=== PATIENT | male | born 1980 | race Caucasian/White ===

== ENCOUNTER 2016-09-08 10:14 | Outpatient (RCR) | payer OTHER ==
[~2016-09-08 10:14] MED LIST: TRAM50TA2 PO
== END 2016-12-07 | disposition home or self-care (01) ==
LOC: LAB 10:14
PROVIDERS: ATTEND Nurse Practitioner
DX: N46.9 Male infertility, unspecified (principal)
CPT/HCPCS: 89320

== ENCOUNTER → 2018-01-09 | Outpatient (CLI) | payer OTHER ==
--- NOTE | 2018-01-09 17:44 | Diagnostic Imaging Report ---
INDICATION: Left knee pain. COMPARISON: None. EXAMINATION: Three views of the left knee were obtained. FINDINGS: No fracture or dislocation. Articular surfaces are normal. There is no foreign body. No joint effusion. IMPRESSION: Negative left knee. Dictated by: Dictated on workstation # [id number]
== END ==
LOC: RAD 17:22
PROVIDERS: ATTEND Family Medicine
DX: M76.892 Other specified enthesopathies of left lower limb, excluding foot (principal)
CPT/HCPCS: 73562; 73721

== ENCOUNTER → 2018-01-15 | Outpatient (CLI) | payer OTHER ==
--- NOTE | 2018-01-16 14:38 | RADIOLOGY REPORT ---
NAME: ROSARIO MCNAMARA [facility] REC#: [id number] PT STATUS: REG CLI : 1980 PHYSICIAN: ARBEN LAZARO APRN ADMIT DATE: 01/15/18/RAD CORRECTED Signed Date of Exam:01/15/18 MRI LT LOWER EXT JOINT W/O PROCEDURE: MRI left joint lower extremity without contrast. TECHNIQUE: Multiplanar, multisequence non contrast-enhanced MRI of the left lower extremity was accomplished. INDICATION: Fall 5 weeks ago, injury to the left knee. COMPARISON: Radiographs from 01/09/2018. FINDINGS: No acute fracture or dislocation is seen in the left knee. Alignment appears normal. There is a small left knee joint effusion. The articular cartilage in the patellofemoral compartment appears intact. The articular cartilage in the medial and lateral compartments demonstrates no large defects. There is linear signal at the posterior horn of the medial meniscus, with suspected extension to the inferior articular surface (image 20 series 7). The lateral meniscus appears to be intact. The anterior cruciate ligament demonstrates increased signal, but the majority of the fibers appears intact. The posterior cruciate ligament is intact. The medial collateral ligament is intact. The lateral collateral ligamentous complex is unremarkable. The soft tissues about the left knee are otherwise unremarkable. No fluid collections are seen. IMPRESSION: 1. Suspected horizontal oblique tear at the posterior horn of the medial meniscus in the left knee. 2. Increased signal of the left anterior cruciate ligament without full-thickness tear. A low-grade partial-thickness tear is not excluded. 3. Small left knee joint effusion. Dictated by: Dictated on workstation # [id number] Dict: 01/15/18 1421 Trans: 01/15/18 1613 ARMIDA [id number] Interpreted by: MOLLY TAYLOR MD Electronically signed by: MOLLY TAYLOR MD 01/15/18 1613 [facility]
== END ==
LOC: RAD 01-09 13:15
PROVIDERS: ATTEND Nurse Practitioner Family
DX: M76.9 Unspecified enthesopathy, lower limb, excluding foot (principal); S89.92XA Unspecified injury of left lower leg, initial encounter; W19.XXXA Unspecified fall, initial encounter
CPT/HCPCS: 73721

== ENCOUNTER → 2022-10-19 | Outpatient (CLI) | payer BC, OTHER ==
[~2022-10-19] MED LIST changes: -TRAM50TA2 PO; +TRM50T PO
[2022-10-19 12:36] LABS: ALBUMIN 4.6 GM/DL (3.2-4.5)
[2022-10-19 12:37] LABS: CHLORIDE 106 MMOL/L (98-107); POTASSIUM 4.6 MMOL/L (3.6-5.0); SODIUM 142 MMOL/L (135-145)
[2022-10-19 12:38] LABS: CALCIUM 9.5 MG/DL (8.5-10.1)
[2022-10-19 12:39] LABS: GLUCOSE 105 MG/DL (70-105); TRIGLYCERIDES 100 MG/DL (<150)
[2022-10-19 12:40] LABS: CARBON DIOXIDE 27 MMOL/L (21-32)
[2022-10-19 12:41] LABS: BILIRUBIN,TOTAL 0.8 MG/DL (0.1-1.0)
[2022-10-19 12:42] LABS: ALKALINE PHOSPHATASE 52 U/L (40-136)
[2022-10-19 12:43] LABS: CREATININE SERUM 1.16 MG/DL (0.60-1.30); GFR ESTIMATED 81
[2022-10-19 12:44] LABS: BUN/CREATININE RATIO 9
[2022-10-19 12:46] LABS: ALANINE AMINOTRANSFERASE 19 U/L (0-55)
== END ==
LOC: LAB 11:47
PROVIDERS: ATTEND Physician Assistant
DX: L71.8 Other rosacea (principal)
CPT/HCPCS: 36415; 80053; 84478

== ENCOUNTER → 2022-11-24 | Outpatient (CLI) | payer OTHER ==
[2022-11-24 11:50] LABS: ALBUMIN 4.7 GM/DL (3.2-4.5); CHLORIDE 105 MMOL/L (98-107); POTASSIUM 4.3 MMOL/L (3.6-5.0); SODIUM 138 MMOL/L (135-145)
[2022-11-24 11:51] LABS: CALCIUM 9.3 MG/DL (8.5-10.1)
[2022-11-24 11:52] LABS: GLUCOSE 129 MG/DL (70-105); TRIGLYCERIDES 82 MG/DL (<150)
[2022-11-24 11:53] LABS: CARBON DIOXIDE 22 MMOL/L (21-32)
[2022-11-24 11:54] LABS: BILIRUBIN,TOTAL 0.8 MG/DL (0.1-1.0)
[2022-11-24 11:55] LABS: ALKALINE PHOSPHATASE 56 U/L (40-136)
[2022-11-24 11:56] LABS: CREATININE SERUM 1.31 MG/DL (0.60-1.30); GFR ESTIMATED 70
[2022-11-24 11:57] LABS: BUN/CREATININE RATIO 11
[2022-11-24 11:59] LABS: ALANINE AMINOTRANSFERASE 13 U/L (0-55)
== END ==
LOC: LAB 10:47
PROVIDERS: ATTEND Physician Assistant
DX: L71.8 Other rosacea (principal)
CPT/HCPCS: 36415; 80053; 84478